=== PATIENT | female | born 1985 | race Caucasian/White ===

== ENCOUNTER 2019-07-09 22:15 | Emergency (ER) | payer BC, OTHER ==
[2019-07-10] MEDS ORDERED: Cyclobenzaprine 10 MG TAB ONE (01:00)
[2019-07-10] MEDS ORDERED: Acetaminophen 500 MG TAB ONE (01:00)
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
== END 2019-07-10 01:20 | disposition home or self-care (01) ==
LOC: ERS 22:15
DX: S16.1XXA Strain of muscle, fascia and tendon at neck level, initial encounter (principal); V63.5XXA Driver of heavy transport vehicle injured in collision with car, pick-up truck or van in traffic accident, initial encounter
CPT/HCPCS: 72125

== ENCOUNTER 2022-07-08 07:59 | Emergency (ER) | payer BC, OTHER ==
[2022-07-08] MEDS ORDERED: Bacitracin 1 PK ONE (08:49)
== END 2022-07-08 08:42 | disposition home or self-care (01) ==
LOC: ERS 07:59
DX: S41.131A Puncture wound without foreign body of right upper arm, initial encounter (principal); W34.00XA Accidental discharge from unspecified firearms or gun, initial encounter

== ENCOUNTER 2025-07-02 14:20 | Outpatient (CLI) | payer BC ==
[2025-07-02 15:08] LABS: #Basophils 0.06 10x3/uL (0.0-0.2); #Eosinophils 0.06 10x3/uL (0.0-0.7); #Monocytes 0.56 10x3/uL (0.11-0.59); #Neutrophils 5.13 10x3/uL (1.40-6.50); %Basophils 0.7 % (0.0-1.0); %Eosinophils 0.7 % (0.0-10.0); %Lymphocytes 35.3 % (21.0-51.0); %Monocytes 6.2 % (0.0-10.0); %Neutrophils 57.0 % (42.0-75.0); Hematocrit 38.3 % (36.0-47.0); Hemoglobin 12.7 g/dL (12.0-16.0); Mean Corpuscular Hemoglobin 31.5 pg (27.0-31.0); Mean Corpuscular Volume 95.0 fL (78.0-98.0); Platelet Count 292 10x3/uL (130-400); Red Blood Cell (RBC) Count 4.03 mill/uL (4.20-5.40); White Blood Cell (WBC) Count 9.00 10x3/uL (4.8-10.8)
[2025-07-02 15:23] LABS: INR-International Normal Ratio 1.0; Prothrombin Time 13.1 sec (12.0-14.7)
[2025-07-02 15:24] LABS: PTT 29.1 sec (22.9-36.1)
[2025-07-02 15:26] LABS: BHCG - Serum Negative (NEGATIVE); Pregs Control Background? CLEAR/WHITE (CLR/WHITE); Pregs Control Bar Appear? YES (CONTROL BAR)
== END 2025-07-02 14:21 | disposition home or self-care (01) ==
LOC: LABBT 14:20
PROVIDERS: ATTEND Neurological Surgery
DX: M71.38 Other bursal cyst, other site (principal)
CPT/HCPCS: 84703; 85025; 85610; 85730

== ENCOUNTER 2025-07-06 07:14 | Day surgery (SDC) | payer BC ==
[2025-07-02 14:47] VITALS: BMI 23.3
[2025-07-06] MEDS ORDERED: PROPOFOL 20 ML ONE (08:07)
[2025-07-06] MEDS ORDERED: Lidocaine 1% PF 5 ML VIAL ONE (08:07)
[2025-07-06] MEDS ORDERED: Rocuronium Bromide 10 MG/ML (10ML VIAL) ONE (08:07)
[2025-07-06] MEDS ORDERED: fentaNYL PF 100 MCG/2 ML SYRINGE ONE ×2 (08:07→08:52)
[2025-07-06] MEDS ORDERED: Thrombin 5000 UNITS/5 ML VIAL ONE (09:19)
[2025-07-06] MEDS ORDERED: CEFAZOLIN 2 GM VIAL ONE (09:51)
[2025-07-06] MEDS ORDERED: Ondansetron PF 4 MG/2 ML Vial ONE ×2 (11:26→15:04)
[2025-07-06] MEDS ORDERED: HYDROmorphone 2 MG/ML VIAL ONE (11:39)
[2025-07-06] MEDS ORDERED: Ketorolac Tromethamine 30 MG (1 mL) VIAL ONE (11:40)
[2025-07-06] MEDS ORDERED: SUGAMMADEX SODIUM 200 MG/2 ML VIAL ONE (11:42)
== END 2025-07-06 17:23 | disposition home or self-care (01) ==
LOC: SDC 07:14
PROVIDERS: ATTEND Neurological Surgery
PROC: 01NB0ZZ Release Lumbar Nerve, Open Approach (ICD-10-PCS; principal; 2025-07-06)
DX: M71.38 Other bursal cyst, other site (principal); M54.16 Radiculopathy, lumbar region; Z87.59 Personal history of other complications of pregnancy, childbirth and the puerperium; Z90.89 Acquired absence of other organs; Z88.5 Allergy status to narcotic agent
CPT/HCPCS: J0169; J0665; J1100; J1171; J1885; J2405; J2704; J3373